=== PATIENT | male | born 1985 | race Hispanic/Latino ===

== ENCOUNTER 2024-09-10 19:49 | Emergency (ER) | payer OTHER | END 2024-09-10 21:14 | LOC: ERS 19:49 | DX: S91.311A Laceration without foreign body, right foot, initial encounter (principal); W26.8XXA Contact with other sharp object(s), not elsewhere classified, initial encounter; Y93.01 Activity, walking, marching and hiking; Z87.891 Personal history of nicotine dependence | CPT/HCPCS: 99283 ==